=== PATIENT | male | born 1980 | race African-American/Black ===

== ENCOUNTER 2024-09-12 09:36 | Emergency (ER) | payer MEDICAID ==
[~2024-09-12] VITALS: Ht 190.5 cm; Wt 136.0 kg
[2024-09-12 09:39] VITALS: O2SAT 98
[2024-09-12] MEDS: ONDANSETRON 4MG ODT PO STA (11:18)
[2024-09-12] MEDS: MORPHINE SULFATE 4 MG/ML INJ (FOR IV/IM USE) IM STA (11:19)
[2024-09-12] MEDS ORDERED: DOXY100C74 MT (11:33)
[2024-09-12 12:12] LABS: CLARITY URINE HAZY (CLEAR); COLOR URINE YELLOW (YELLOW); GLUCOSE URINE NEGATIVE (NEGATIVE); KETONES URINE NEGATIVE (NEGATIVE); LEUKOCYTE ESTERASE URINE NEGATIVE (NEGATIVE); NITRITE URINE POSITIVE (NEGATIVE); OCCULT BLOOD URINE 3+ (NEGATIVE); PH URINE 6.5 (4.5-8.0); PROTEIN URINE NEGATIVE (NEGATIVE)
[2024-09-12] MEDS: DOXYCYCLINE HYCLATE 100MG CAPSULE PO ONE (12:27)
[2024-09-12 12:28] LABS: MUCUS URINE 3+ /lpf (NONE/TRACE)
[2024-09-12] MEDS: CEFTRIAXONE SODIUM 500MG VIAL IM ONE (12:28)
[2024-09-12 12:29] LABS: BACTERIA URINE 4+
[2024-09-12 12:30] LABS: WBC URINE 15-25 /hpf (0-2)
[2024-09-12 12:31] LABS: RBC URINE 25-50 /hpf (0-2); SQUAMOUS EPITHELIAL CELL URINE RARE /lpf (RARE/1+)
[2024-09-12 12:41] VITALS: BP 135/87; PULSE 77; RESP 18; TEMP 37.00296; O2SAT 99
[2024-09-15 08:08] LABS: CHLAMYDIA TRACHOMATIS NAA Negative (Negative); NEISSERIA GONORRHOEAE NAA Negative (Negative)
== END 2024-09-12 12:52 | disposition home or self-care (01) ==
LOC: ER 09:36
DX: N45.1 Epididymitis (principal)
CPT/HCPCS: 99285; 93976; 87491; 87591; 81003; 87086; 87186; 87077; 76870; 96372; Q0162; J0696; J2270